=== PATIENT | male | born 1945 | race Caucasian/White ===

== ENCOUNTER → 2016-06-10 | Outpatient (CLI) | payer OTHER, MEDICARE | LOC: BMCIMAGING 10:48 → EDSTATUS 16:23 | PROVIDERS: ATTEND Physician Assistant | DX: M17.0 Bilateral primary osteoarthritis of knee (principal) ==

== ENCOUNTER → 2017-06-30 | Outpatient (CLI) | payer OTHER, MEDICARE | LOC: BHFA 13:30 | PROVIDERS: ATTEND Internal Medicine Interventional Cardiology | DX: R53.83 Other fatigue (principal) ==

== ENCOUNTER → 2017-07-16 | Outpatient (CLI) | payer OTHER, MEDICARE | LOC: FCPNEURO 20:00 | PROVIDERS: ATTEND Internal Medicine Sleep Medicine | DX: G47.33 Obstructive sleep apnea (adult) (pediatric) (principal); G47.31 Primary central sleep apnea ==

== ENCOUNTER 2018-02-09 05:58 | Inpatient (IN) | payer OTHER, MEDICARE ==
[2018-02-09] MEDS ORDERED: TRANEXAMIC ACID 3,000 MG in NS (SYRINGE) 50 ML IRR ONE (06:00)
[2018-02-09] MEDS ORDERED: POVIDONE-IODINE 20 ML in SODIUM CL IRRIG SOLUTION 500 ML IRR ONE (06:00)
[2018-02-09] MEDS ORDERED: ROPIVACAINE 0.2% 80 MG, EPINEPHrine 0.2 MG in SYRINGE 0 ML IU ONE (06:00)
[2018-02-09] MEDS ORDERED: TRANEXAMIC ACID 1,000 MG in NS 100 ML IV ONE (06:00)
[2018-02-09] MEDS ORDERED: GABAPENTIN 300 MG CAP PO ONE (06:12)
[2018-02-09] MEDS ORDERED: FAMOTIDINE 20 MG TAB PO ONE (06:12)
[2018-02-09] MEDS ORDERED: DEXAMETHASONE 4 MG/ML VIAL IVP ONE (06:12)
[2018-02-09] MEDS ORDERED: ceFAZolin 2 GM/DEXTROSE 100 ML IV ONE (06:12)
[2018-02-09] MEDS ORDERED: ONDANSETRON 4 MG/2 ML VIAL IVP ONE (06:12)
[2018-02-09] MEDS ORDERED: ACETAMINOPHEN 325 MG TAB PO ONE (06:12)
[2018-02-09] MEDS ORDERED: ceFAZolin 1 GM/5 ML SYR ONE (06:12)
[2018-02-09] MEDS ORDERED: LR 1,000 ML IV ONE (06:14)
[2018-02-09] MEDS ORDERED: TRANEXAMIC ACID 3,000 MG/50 ML BAG IRR ONE (06:15)
[2018-02-09] MEDS ORDERED: MIDAZOLAM 2 MG/2 ML VIAL IVP ONE (06:55)
--- NOTE | 2018-02-09 06:55 | PDANEPAE ---
ANE History of Present Illness 72 yo for tka ANE Past Medical History - Cardiovascular History Hx Hypertension: Yes Hx Arrhythmias: No Hx Chest Pain: No Hx Coronary Artery / Peripheral Vascular Disease: No Hx CHF / Valvular Disease: No Hx Palpitations: No Cardiovascular History Comment: PAST HX SKIPPED BEATS - NONE RECENT - Pulmonary History Hx COPD: No Hx Asthma/Reactive Airway Disease: No Hx Recent Upper Respiratory Infection: No Hx Oxygen in Use at Home: No Hx Sleep Apnea: Yes Sleep Apnea Screening Result - Last Documented: Negative Pulmonary History Comment: POS KAITLIN - ASV MACHINE - Neurologic History Hx Cerebrovascular Accident: No Hx Seizures: No Hx Dementia: No - Endocrine History Hx Diabetes: No - Renal History Hx Renal Disorders: Yes Renal History Comment: RENAL CELL CARCINOMA. R NEPHRECTOMY - Liver History Hx Hepatic Disorders: No - Neurological & Psychiatric Hx Hx Neurological and Psychiatric Disorders: No - Cancer History Hx Cancer: No Cancer History Comment: R KIDNEY CA - Congenital Disorder History Hx Congenital Disorders: No - GI History Hx Gastrointestinal Disorders: No - Other Health History Other Health History: BUMPY LUMPS SCALP - Chronic Pain History Chronic Pain: Yes (MICHELLE KNEES) - Surgical History Prior Surgeries: R NEPHRECTOMY. HEMMORRHOIDS. COLONOSCOPIES ANE Review of Systems Review of Systems: - Exercise capacity METS (RN): 4 METS ANE Patient History - Allergies Allergies/Adverse Reactions: No Known Allergies Allergy (Unverified 01/12/18 11:14) - Home Medications Home medications: home medication list seen and reviewed Home Medications: Calcitriol [Calcitriol (*)] 0.25 mcg PO Q2D 01/12/18 [Last Taken 02/08/18] Doxazosin Mesylate [Cardura 4 MG (*)] 4 mg PO DAILY 01/12/18 [Last Taken ] Ibuprofen [Motrin (*)] 200 mg PO DAILY PRN 01/12/18 [Last Taken 02/07/18] Losartan Potassium 100 mg PO DAILY 01/12/18 [Last Taken 02/08/18] Triamterene/Hctz 37.5/25 [Dyazide 37.5/25 (*)] 1 each PO Q2D 01/12/18 [Last Taken 02/08/18] amLODIPine BESYLATE [Norvasc 5 mg (*)] 5 mg PO DAILY 01/12/18 [Last Taken ] Acetaminophen 01/13/18 [Last Taken 02/07/18] - NPO status NPO Status: no food or drink >8 hours NPO Since - Liquids (Date): 02/09/18 NPO Since - Liquids (Time): 02:00 NPO Since - Solids (Date): 02/08/18 NPO Since - Solids (Time): 18:00 - Smoking Hx Smoking Status: Never smoked - Family Anes Hx Family Hx Anesthesia Complications: NEG ANE Labs/Vital Signs - Vital Signs Blood Pressure: 139/92 Heart Rate: 73 Respiratory Rate: 14 O2 Sat (%): 93 Height: 5 ft 10 in Weight: 79.379 kg ANE Physical Exam - Airway Neck exam: FROM Mallampati Score: Class 2 Mouth exam: normal dental/mouth exam - Pulmonary Pulmonary: no respiratory distress - Cardiovascular Cardiovascular: regular rate and rhythym - ASA Status ASA Status: III ANE Anesthesia Plan Anesthesia Plan: spinal Regional Anesthesia: continuous NB
[2018-02-09] MEDS ORDERED: MIDAZOLAM 2 MG/2 ML VIAL ONE (06:57)
--- NOTE | 2018-02-09 07:00 | PDHPUP ---
History & Physical Update H&P update statement: This history and physical update is based on an assessment of the patient which was completed after admission or registration (within 24 hours), but prior to the surgery/procedure. H&P update: H&P reviewed & patient examined
[2018-02-09] MEDS ORDERED: PROPOFOL/EMULSION 500 MG/50 ML BOTTLE IV ONE (07:05)
[2018-02-09] MEDS ORDERED: VANCOMYCIN 1 GM VIAL ONE (07:09)
[2018-02-09] MEDS ORDERED: HYDROmorphONE/DILAUDID 2 MG/ML INJ IVP PRN (08:43)
[2018-02-09] MEDS ORDERED: NALOXONE HCL 0.4 MG/ML INJ IVP PRN (08:43)
[2018-02-09] MEDS ORDERED: ONDANSETRON 4 MG/2 ML VIAL IVP PRN ×2 (08:43→09:04)
[2018-02-09] MEDS ORDERED: fentaNYL 100 MCG/2 ML INJ IVP PRN (08:43)
[2018-02-09] MEDS ORDERED: NS 500 ML IV PRN (09:04)
[2018-02-09] MEDS ORDERED: DIPHENOXYLATE/ATROPINE LOMOTIL 1 TAB PO PRN (09:04)
[2018-02-09] MEDS ORDERED: MAGNESIUM HYDROXIDE 30 ML UDCUP PO PRN (09:04)
[2018-02-09] MEDS ORDERED: diphenhydrAMINE 25 MG CAP PO PRN (09:04)
[2018-02-09] MEDS ORDERED: TEMAZEPAM 15 MG CAP PO PRN (09:04)
[2018-02-09] MEDS ORDERED: CYCLOBENZAPRINE 10 MG TAB PO PRN (09:04)
[2018-02-09] MEDS ORDERED: PROMETHAZINE HCL 25 MG/ML INJ IVP PRN (09:04)
[2018-02-09] MEDS ORDERED: BISACODYL 10 MG SUPP PR PRN (09:04)
[2018-02-09] MEDS ORDERED: traMADol 50 MG TAB PO PRN (09:04)
[2018-02-09] MEDS ORDERED: oxyCODONE IR 5 MG TAB PO PRN (09:04)
[2018-02-09] MEDS ORDERED: POLYETHYLENE GLYCOL 3350 17 GM PKT PO PRN (09:04)
[2018-02-09] MEDS ORDERED: LACTULOSE 20 GM/30 ML UDCUP PO PRN (09:04)
[2018-02-09] MEDS ORDERED: PROMETHAZINE HCL 25 MG SUPPR PR PRN (09:04)
[2018-02-09] MEDS ORDERED: ONDANSETRON DISINTEGRATING 4 MG TAB PO PRN (09:04)
[2018-02-09] MEDS ORDERED: METOCLOPRAMIDE 10 MG/2 ML VIAL IVP PRN (09:04)
--- NOTE | 2018-02-09 09:08 | POSTOPPROG ---
Post Op Note Date of Operation: 02/09/18 Surgeon: Asher Castro Laborer Wharf: Avinash Anesthesiologist: Sepideh Anesthesia: IV Sedation, Spinal Post-op Diagnosis: Right knee severe degenerative arthritis Procedure: Right total knee arthroplasty Inf/Abcess present in the surg proc area at time of surgery?: No EBL: 50-100 (Adductor canal block in PACU with indwelling catheter.)
[2018-02-09] MEDS ORDERED: LR 1,000 ML IV SCH (09:30)
--- NOTE | 2018-02-09 09:35 | GOP ---
DATE OF OPERATION: 02/09/2018 SURGEON: Asher Castro MD SOLE TACKER: Galo Curry and Anjum Villa. ANESTHESIA: A combination of Marcaine, spinal, IV sedation, and adductor canal block. ANESTHESIOLOGIST: Dr. Bunn. PREOPERATIVE DIAGNOSIS: Right knee severe degenerative arthritis with varus deformity. POSTOPERATIVE DIAGNOSIS: Right knee severe degenerative arthritis with varus deformity. PROCEDURE PERFORMED: Right total knee arthroplasty. FINDINGS: DESCRIPTION OF PROCEDURE: The patient was given 2 g of IV Ancef preoperatively within 60 minutes of surgery. He also received 1000 mg of IV tranexamic acid. He was placed on the operating room table and given spinal anesthesia with Marcaine by Dr. Bunn. He was then placed supine and given IV se dation. A Miranda catheter was not used. He wore a AKHIL stocking and SCD on the nonoperative leg. A s mall bolster was placed under his right hip to prevent excessive external rotation. His right lower extremity was prepped with ChloraPrep from the upper thigh tourniquet to the tips of the toes. It wa s draped free using sterile sheets, stockinette, and Ioban plastic adhesive drapes. His lower leg wa s wrapped with compressive Coban. The leg was exsanguinated with elevation and a 6-inch compressive wrap, and the tourniquet was inflated to 250 mmHg. The World Health Organization time-out was performed to verify the correct patient identity and the c orrect surgical side and site. [facility] time-out was also performed. The [employer] leg holding device was sterilely attached to the operating room table and used throughout the procedure to help position the knee. A straight midline incision was made centered on the patell a. Subcutaneous tissues were sharply divided and hemostasis was obtained using electrocautery. A me dial subcutaneous flap was developed and the capsule and synovium were opened in a medial parapatella r fashion. Extensive degenerative changes were present, particularly in the patellofemoral joint and medial compartment. His medial capsule and periosteum were elevated off the rim of the medial tibia l plateau all the way around to the posteromedial corner. His medial collateral ligament was release d enough to balance the medial side of the knee and correct the varus deformity. In order to improve exposure, his patella was prepared first. The original thickness of the patella was measured. Peripheral osteophytes were removed. I cut a flat surface on the back of the patella. He was sized for a 38 mm round resurfacing component. I removed enough bone from the patella, such that the remaining bone, plus the thickness of the patellar component recreated the original thickne ss of the patella. The composite thickness was 24 mm. The intramedullary alignment guide system was used to set up the distal femoral cut. The distal femu r was cut in 5 degrees of valgus. Because of a 10 to 12 degree preoperative flexion contracture, I m ben a +2 mm cut on the distal femur. The sizing jig was used to determine proper femoral sizing. I shifted the jig anteriorly 1 mm in order to accommodate a size 6 jig without notching the anterior co rtex. I placed the jig in a few degrees of flexion. The 5-in-1 cutting block was applied and the an terior and posterior condylar cuts and chamfer cuts were made. The final jig was used to remove the central portion of the distal femur to accommodate the posterior stabilized femoral component. I was careful to determine proper rotation by referencing off Whitesides line and other bony landmarks. E ach cut was checked for accuracy. The femur was sized for a size 6 posterior stabilized component. Next, the tibia was prepared. The proximal tibial cut was made using the extramedullary alignment gu sameer system. The cut was made in a few degrees of posterior slope. I was careful to achieve proper v arus valgus alignment and proper rotation. The posterior compartment was cleared of meniscal remnant s. Osteophytes were removed from the back of the femoral condyles. I checked the flexion extension gaps and they were equal and rectangular. The tibia was sized for a size 5 component. With the tria l components in place, I selected an 11 mm polyethylene posterior stabilized tibial insert. The knee came to full extension and flexed to 125 degrees. His collateral ligaments were stable and balanced in 90 degrees of flexion and full extension. The trial patellar button was applied and patellar tra cking was checked. Tracking was excellent without any digital pressure. 40 cc of the joint anesthetic cocktail were injected into the posterior capsule, the quadriceps muscl e and tendon areas, and the subcutaneous tissues around the skin edges. The surfaces were prepared for cementing. They were carefully cleaned with the pulsating lavage irri gation and thoroughly dried. The CarboJet device was used to blow dry the cancellous surfaces. A do uble batch of high viscosity methylmethacrylate cement with 2 g of powdered vancomycin added was mixe d. While it was still in a doughy state, all 3 components were cemented in place. Excess cement was removed before it hardened. The 11 mm trial tibial insert was re-tried and was the proper thickness. The actual component was in serted, locked into place. The knee was thoroughly irrigated one final time with a dilute Betadine s olution. The tourniquet was deflated and the total tourniquet time was 45 minutes. 50 cc of tranexa bella acid solution was irrigated into the joint. I packed the joint with the lap sponge and wrapped w ith a 6 inch wrap and left the tranexamic acid in place for 3 or 4 minutes. The vastus medialis portion of the extensor mechanism was repaired with several interrupted figure-of -eight #2 FiberWire sutures. The capsule and synovium were closed first with multiple interrupted fi [id number] 0 PDS sutures, followed by a running #2 barbed Ethicon Stratafix PDO suture. The subcu taneous tissues were closed with a running 0 barbed Ethicon Stratafix MonoDerm suture. The skin was closed with a running 3-0 barbed Ethicon Stratafix MonoDerm subcuticular suture. The skin was sealed with half-inch Steri-Strips. The wound was covered with a large Mepilex waterproof dressing and a 6 -inch compressive wrap. A long-leg AKHIL stocking and SCD were applied, followed by the cooling device . He wore a stocking and SCD on the opposite leg during the procedure. The sacral Mepilex dressing was applied. I used a size 6 cemented [employer] Oxinium posterior stabilized femoral component, a size 5 ce mented tibial base plate, an 11 mm posterior stabilized tibial insert, and a 38 mm cemented round all -polyethylene resurfacing patellar component. The estimated blood loss following inflation tourniquet was about 100 cc. The sponge and needle count were correct on 2 occasions. The patient was awakened from anesthesia, transferred to his hospital [facility], and taken to PACU in sa tisfactory condition. There were no recognized intraoperative complications. In the PACU, for addit ional postoperative pain control, Dr. Bunn performed an adductor canal block with an indwelling c atheter. Galo Curry and Anjum Villa acted as surgical assistants. Their assistance was a medical necess ity for safe completion of the procedure. /[id number]/MODL
--- NOTE | 2018-02-09 10:14 | POSTANESTH ---
Post Anesthetic Evaluation Cardiovascular Status: Normal, Stable Respiratory Status: Tx Decrease in SpO2 Level of Consciousness/Mental Status: Can Participate in Eval Pain Control: Adequate, Prn Tx Ordered Nausea/Vomiting Control: Adequate, Prn Tx Ordered Complications Possibly Related to Anesthesia: None Noted
[2018-02-09] MEDS: ACETAMINOPHEN 325 MG TAB PO SCH ×3 (11:13→23:29)
--- NOTE | 2018-02-09 15:49 | ASMTCMCOM ---
CM Note CM Note Notes: Reviewed chart, pt came in for scheduled surgery of right knee. Pt lives at home with his , PT/OT pending. DC Plan: TBD Date Signed: 02/09/2018 03:48 PM Electronically Signed By:Dolly Ramirez RN
[2018-02-09] MEDS: ceFAZolin 2 GM/DEXTROSE 100 ML IV SCH ×2 (16:20→23:29)
[2018-02-09] MEDS: SENNOSIDES/DOCUSATE SODIUM TAB PO SCH (21:50)
[2018-02-09] MEDS: FAMOTIDINE 20 MG TAB PO SCH (21:50)
[2018-02-09] MEDS: ASPIRIN 325 MG TAB PO SCH (21:53)
[2018-02-10] MEDS ORDERED: PNEUMOC 13-VAL CONJ-DIP CRM/PF 0.5 ML SYR IM ONE (05:44)
[2018-02-10] MEDS: ACETAMINOPHEN 325 MG TAB PO SCH ×2 (06:19→13:11)
--- NOTE | 2018-02-10 08:46 | SOAPPROG ---
SOAP Progress Note Assessment/Plan: Assessment: POD #1. s/p R TKA Awake, alert, afebrile. VSS. H/H ok. Dressing clean and dry. Post op films look good. 1 episode of emesis yesterday. Feeling better now. Dizzy getting OOB yesterday. Plan: PT/OT today. D/c to home later today pending dizzyness/progress with ambulation. Will need home PT for 2-3 sessions. 02/10/18 08:44 Objective: Vital Signs Temp Pulse Resp BP Pulse Ox 36.5 C 58 L 16 135/79 H 97 02/10/18 05:00 02/10/18 05:00 02/10/18 05:00 02/10/18 05:00 02/10/18 05:00 Laboratory Results 02/10/18 04:52 02/09/18 02/10/18 02/11/18 05:59 05:59 05:59 Intake Total 3485 Output Total 1750 Balance 1735 ICD10 Worksheet Patient Problems: Problems Problem Status Onset Osteoarthritis of right knee Acute
--- NOTE | 2018-02-10 08:49 | PDIAF ---
- Diagnosis Diagnosis: R knee OA Code Status: Full Code - Medication Management Discharge Medications: Medications to Continue on Transfer Calcitriol [Calcitriol (*)] 0.25 mcg PO Q2D 01/12/18 [Last Taken 02/08/18] Doxazosin Mesylate [Cardura 4 MG (*)] 4 mg PO DAILY 01/12/18 [Last Taken ] Losartan Potassium 100 mg PO DAILY 01/12/18 [Last Taken 02/08/18] Triamterene/Hctz 37.5/25 [Dyazide 37.5/25 (*)] 1 each PO Q2D 01/12/18 [Last Taken 02/08/18] amLODIPine BESYLATE [Norvasc 5 mg (*)] 5 mg PO DAILY 01/12/18 [Last Taken ] Acetaminophen [Tylenol 325mg (*)] 650 mg PO Q6HRS tab 02/10/18 [Last Taken Unknown] Aspirin [Aspirin 325 mg (*)] 325 mg PO DAILY tab 02/10/18 [Last Taken Unknown] Ferrous Sulfate [Slow Fe 140 MG (*)] 140 mg PO DAILY tab.er 02/10/18 [Last Taken Unknown] Ondansetron Odt [Zofran Odt 4 mg (*)] 4 mg PO Q4HRS PRN tab 02/10/18 [Last Taken Unknown] Sennosides/Docusate Sodium [Senokot-S] 1 - 2 tab PO BID tab 02/10/18 [Last Taken Unknown] oxyCODONE IR [Oxycodone Ir (*)] 5 - 10 mg PO Q3HRS PRN tab 02/10/18 [Last Taken Unknown] traMADol [Ultram 50 mg (*)] 50 mg PO Q6HRS PRN tab 02/10/18 [Last Taken Unknown ] Discharge Medications: Refer to the Discharge Home Medication list for PRN reason. PICC Care - Routine: N/A - Orders Services needed: Home Care, Physical Therapy Home Care Face to Face: I certify that this patient was under my care and that I had the required [id number] encounter meeting the encounter requirements on the discharge day. My findings support the fact that the patient is homebound as defined in Home Care Face to Face Continued: CMS Chapter 7 Medicare Benefits Manual 30.1.1 , The condition of the patient is such that there exists a normal inability to leave home and consequently, leaving home would require a considerable and taxing effort. Diet Recommendation: no restrictions on diet Diet Texture: Regular Texture Diet Miranda: Not applicable [place] Stockings Discontinue Date: 1 week Wound Care Instructions: Keep clean and dry. You may shower. Activity/Weight Bearing Restrictions: as tolerated. Equipment: Zero knee while in bed. - Follow Up Care Current Providers and Referrals: Sam Sepulveda MD [Primary Care Provider] - Asher Castro MD [Medical Doctor] - 02/24/18
[2018-02-10] MEDS ORDERED: amLODIPine BESYLATE 5 MG TAB PO SCH (09:00)
[2018-02-10] MEDS ORDERED: FERROUS SULFATE 140 MG TAB.ER PO SCH (09:00)
[2018-02-10] MEDS ORDERED: DOXAZOSIN MESYLATE 4 MG TAB PO SCH (09:00)
[2018-02-10] MEDS ORDERED: LOSARTAN POTASSIUM 50 MG TAB PO SCH (09:00)
[2018-02-10] MEDS: SENNOSIDES/DOCUSATE SODIUM TAB PO SCH (10:16)
[2018-02-10] MEDS: ASPIRIN 325 MG TAB PO SCH (10:17)
[2018-02-10] MEDS: FAMOTIDINE 20 MG TAB PO SCH (10:17)
--- NOTE | 2018-02-10 10:25 | ASMTCMCOM ---
CM Note CM Note Notes: Pt medically stable for d/c with [facility] ([facility] alerted). Orders to be obtained via [employer]. Date Signed: 02/10/2018 10:25 AM Electronically Signed By:ALEXA Galvez
[2018-02-10] MEDS ORDERED: LIPID EMULSION 20% 100 ML IV PRN (11:16)
--- NOTE | 2018-02-10 12:39 | PDPAINCON ---
Pain Management Consultation Patient referred by : Gloria - Subjective Pain at rest (/10): 0 Pain is: no pain at all Activity: able to ambulate, participating in PT - Objective Technique: continuous peripheral nerve block Site: femoral Catheter site: clean, dry, intact, no erythema/edema/exudate Sensory and motor exam: consistent with block Vital signs: stable - Assessment/Plan Assessment/Plan: pain well-controlled, continue current mgmt Additional comments: Ropivicaine 0.5% 20cc bolused thru catheter and then removed. No complications
[2018-02-10 13:30] VITALS: BP 148/82
--- NOTE | 2018-02-10 16:44 | ASMTLACE ---
LACE Length of stay for Answers: 2 days current admission Acuity / Level of Answers: Yes Care: Did the patient have an inpatient admission? Comorbidities - select Answers: Other Notes: Kidney Ca all that apply # of Emergency department Answers: 0 visits in the last 6 months Score: 6 Date Signed: 02/10/2018 04:43 PM Electronically Signed By:ALEXA Galvez
[2018-02-11] MEDS ORDERED: CALCITRIOL 0.25 MCG CAP PO SCH (09:00)
[2018-02-11] MEDS ORDERED: TRIAMTERENE/HCTZ 37.5/25 1 EACH CAP PO SCH (09:00)
--- NOTE | 2018-02-11 12:28 | ASDISCHSUM ---
Discharge Information Plan Status:Home with Home Health Medically Cleared to Leave: Discharge Date:02/10/2018 03:33 PM CM D/C Disposition: ADT D/C Disposition:HHSNOTBC Projected Discharge Date:02/10/2018 11:00 AM Transportation at D/C: Discharge Delay Reason: Follow-Up Date:02/10/2018 11:00 AM Discharge Slot: Final Diagnosis: Placement Information Referral Type:*Home Health Care Services Referral ID:[id number] Provider Name:[facility] Address 1[address] 2: City:[place] Selection Factors: State:[place] Patient Contact Information Contact Name:RON Relationship: Address:[facility] [place] City:[place] Alternate Phone: State/Zip Code:[place] [address] Email: Financial Information Financial Class:Medicare Primary Plan Desc:MEDICARE INPATIENT Primary Plan Number:[id number] Secondary Plan Desc:AARP/MDR SUPPLEMENT Secondary Plan Number:[id number] Assessment Information LACE LACE Length of stay for Answers: 2 days current admission Acuity / Level of Answers: Yes Care: Did the patient have an inpatient admission? Comorbidities - select Answers: Other Notes: Kidney Ca all that apply # of Emergency department Answers: 0 visits in the last 6 months Score: 6 Date Signed: 02/10/2018 04:43 PM Electronically Signed By:ALEXA Galvez [facility] CM Progress Note CM Note CM Note Notes: Reviewed chart, pt came in for scheduled surgery of right knee. Pt lives at home with his , PT/OT pending. DC Plan: TBD Date Signed: 02/09/2018 03:48 PM Electronically Signed By:Dolly Ramirez RN [facility] CM Progress Note CM Note CM Note Notes: Pt medically stable for d/c with [facility] (Alma guzman). Orders to be obtained via [employer]. Date Signed: 02/10/2018 10:25 AM Electronically Signed By:ALEXA Galvez Intervention Information
--- NOTE | 2018-02-15 11:15 | GDS ---
ADMISSION DIAGNOSIS: Severe right knee osteoarthritis. DISCHARGE DIAGNOSIS: Severe right knee osteoarthritis. OPERATION PERFORMED: A right total knee arthroplasty, cemented. POSTOPERATIVE COMPLICATIONS: None. CONDITION ON DISCHARGE: Improved. HOSPITAL COURSE: The patient was admitted to the hospital on the day of surgery. His admission whit e blood cell count was 5.7. His hemoglobin and hematocrit were normal. His BUN and creatinine were 30 and 2.1, respectively. He has a history of renal cell carcinoma with nephrectomy. The same day u nder a combination of IV sedation and Marcaine spinal anesthesia, the patient underwent a right total knee arthroplasty. A Miranda catheter was not used. He was treated with multimodal DVT prophylaxis, including AKHIL stockings, SCDs, and early mobilization. On the first postoperative day, the patient's hemoglobin and hematocrit were 11.5 and 35.2. He was s een by Physical Therapy and made good progress with knee range of motion exercises and ambulation. By the time of discharge, the patient was independent with his exercises and afebrile. He was ambula ting with a walker. DISPOSITION: The patient is discharged to his home. He will have home physical therapy. He has a p rescription for tramadol and oxycodone for pain control. He also has a prescription for outpatient p hysical therapy. Full-strength aspirin daily x21 days. AKHIL stockings x1 week. Weightbearing as anel erated. He has a followup appointment in the office with Dr. Castro on February 24, 2018. He is to c all the office sooner if he has any problems. /[id number]/MODL
== END 2018-02-10 15:33 | disposition home health service (06) | DRG 470 ==
LOC: F3N 05:58 → OBSVTOIN 09:09 → F3N 10:32
PROVIDERS: ADMIT Orthopaedic Surgery; ATTEND Orthopaedic Surgery
PROC: 0SRC0J9 Replacement of Right Knee Joint with Synthetic Substitute, Cemented, Open Approach (ICD-10-PCS; principal; 2018-02-09 07:15)
DX: M17.11 Unilateral primary osteoarthritis, right knee (principal); G47.30 Sleep apnea, unspecified; I10 Essential (primary) hypertension; Z85.528 Personal history of other malignant neoplasm of kidney; Z90.5 Acquired absence of kidney; Z23 Encounter for immunization
CPT/HCPCS: 97110-GP; 97116-GP; 97161-GP; 97165-GO; C1713; G0008; G0009; G8978-GP-CJ; G8979-GP-CI; G8980-GP-CI; G8987-GO-CI; G8988-GO-CI; G8989-GO-CI; J0171; J0690; J1100; J2250; J2405; J2550; J2704; J2795; J3370

== ENCOUNTER 2018-09-17 16:52 | Emergency (ER) | payer OTHER, MEDICARE ==
--- NOTE | 2018-09-17 17:11 | EDPHY ---
H & P Stated Complaint: unable to urinate since this am Time Seen by Provider: 09/17/18 16:57 HPI/ROS: CHIEF COMPLAINT: Unable to urinate HISTORY OF PRESENT ILLNESS: Patient is a 73-year-old man who comes to the emergency department complaining of being unable to urinate for the last 3 hr. He has a history of renal tumor with nephrectomy 3 years ago. He has known large prostate. He has never had difficulty urinating before however. He has not noticed any blood in his urine. No fever or dysuria. Moderate suprapubic pain. Patient saw his community development coordinator yesterday in urinalysis and blood work is been unremarkable recently. Severity: Severe Modifying factors: None REVIEW OF SYSTEMS: Constitutional: denies: chills, fever, recent illness, recent injury EENTM: denies: blurred vision, double vision, nose congestion Respiratory: denies: cough, shortness of breath Cardiac: denies: chest pain, irregular heart rate, lightheadedness, palpitations Gastrointestinal/Abdominal: denies: abdominal pain, diarrhea, nausea, vomiting, blood streaked stools Genitourinary: See HPI Musculoskeletal: denies: joint pain, muscle pain Skin: denies: lesions, rash, jaundice, bruising Neurological: denies: headache, numbness, paresthesia, tingling, dizziness, weakness Hematologic/Lymphatic: denies: blood clots, easy bleeding, easy bruising Immunologic/allergic: denies: HIV/AIDS, transplant 10 systems reviewed and negative except as noted EXAM: GENERAL: Well-appearing, well-nourished and in no acute distress. HEAD: Atraumatic, normocephalic. EYES: Pupils equal round and reactive to light, extraocular movements intact, sclera anicteric, conjunctiva are normal. ENT: TMs normal, nares patent, oropharynx clear without exudates. Moist mucous membranes. NECK: Normal range of motion, supple without lymphadenopathy or JVD. LUNGS: Breath sounds clear to auscultation bilaterally and equal. No wheezes rales or rhonchi. HEART: Regular rate and rhythm without murmurs, rubs or gallops. ABDOMEN: Tender distended bladder, normoactive bowel sounds. No guarding, no rebound. No masses appreciated. BACK: No CVA tenderness, no spinal tenderness, step-offs or deformities EXTREMITIES: Normal range of motion, no pitting or edema. No clubbing or cyanosis. NEUROLOGICAL: Cranial nerves II through XII grossly intact. Normal speech, normal gait. 5/5 strength, normal movement in all extremities, normal sensation , normal reflexes PSYCH: Normal mood, normal affect. SKIN: Warm, dry, normal turgor, no visible rashes or lesions. Source: Patient Exam Limitations: No limitations - Personal History Current Tetanus/Diphtheria Vaccine: Unsure Current Tetanus Diphtheria and Acellular Pertussis (TDAP): Unsure - Medical/Surgical History Hx Asthma: No Hx Chronic Respiratory Disease: No Hx Diabetes: No Hx Cardiac Disease: No Hx Renal Disease: No Hx Cirrhosis: No Hx Alcoholism: No Hx HIV/AIDS: No Hx Splenectomy or Spleen Trauma: No Other PMH: HTN, Tumor removed from R kidney. Hemmhroids. - Family History Significant Family History: No pertinent family hx - Social History Smoking Status: Never smoked Alcohol Use: Sober Drug Use: None Constitutional: Initial Vital Signs Temperature (C) 36.7 C 09/17/18 16:54 Heart Rate 97 09/17/18 16:54 Respiratory Rate 12 09/17/18 16:54 Blood Pressure 167/121 H 09/17/18 16:54 O2 Sat (%) 96 09/17/18 16:54 O2 Delivery Mode Room Air Allergies/Adverse Reactions: No Known Allergies Allergy (Unverified 01/12/18 11:14) Home Medications: Medication Instructions Recorded Calcitriol [Calcitriol (*)] 0.25 mcg PO Q2D 01/12/18 Doxazosin Mesylate [Cardura 4 MG 4 mg PO DAILY 01/12/18 (*)] Losartan Potassium 100 mg PO DAILY 01/12/18 Triamterene/Hctz 37.5/25 [Dyazide 1 each PO Q2D 01/12/18 37.5/25 (*)] amLODIPine BESYLATE [Norvasc 5 mg 5 mg PO DAILY 01/12/18 (*)] Acetaminophen [Tylenol 325mg (*)] 650 mg PO Q6HRS tab 02/10/18 Aspirin [Aspirin 325 mg (*)] 325 mg PO DAILY tab 02/10/18 Ferrous Sulfate [Slow Fe 140 MG] 140 mg PO DAILY tab.er 02/10/18 Ondansetron Odt [Zofran Odt 4 mg 4 mg PO Q4HRS PRN tab 02/10/18 (*)] Sennosides/Docusate Sodium 1 - 2 tab PO BID tab 02/10/18 [Senokot-S] oxyCODONE IR [Oxycodone Ir (*)] 5 - 10 mg PO Q3HRS PRN tab 02/10/18 traMADol [Ultram 50 mg (*)] 50 mg PO Q6HRS PRN tab 02/10/18 Medical Decision Making ED Course/Re-evaluation: Patient tolerated Miranda catheter placement. Urine is clear. Will send for testing. Will leave Miranda catheter in place with leg bag until he follows up with his urologist Dr. Antoine. Patient and are happy with this plan. Differential Diagnosis: Partial list of the Differential diagnosis considered include but were not limited to; prostatic hypertrophy, prostatic cancer, urinary retention and although unlikely based on the history and physical exam, I also considered urinary tract infection, kidney stone. I discussed these differential diagnoses and the plan with the patient as well as the usual and expected course. The patient understands that the diagnosis is provisional and that in medicine we are not always correct and that further workup is often warranted. Usual and customary warnings were given. All of the patient's questions were answered. The patient was instructed to return to the emergency department should the symptoms at all worsen or return, otherwise to followup with the physician as we discussed. - Data Points Laboratory Results: 09/17/18 18:10 Urine Color YELLOW Urine Appearance CLEAR Urine pH 6.0 (5.0-7.5) Ur Specific Fosters 1.017 (1.002-1.030) Urine Protein 3+ H (NEGATIVE) Urine Ketones NEGATIVE (NEGATIVE) Urine Blood NEGATIVE (NEGATIVE) Urine Nitrate NEGATIVE (NEGATIVE) Urine Bilirubin NEGATIVE (NEGATIVE) Urine Urobilinogen NEGATIVE EU EU (0.2-1.0) Ur Leukocyte Esterase NEGATIVE (NEGATIVE) Urine RBC 1-3 /hpf /hpf (0-3) Urine WBC 1-3 /hpf /hpf (0-3) Ur Epithelial Cells NONE SEEN /lpf /lpf (NONE-1+) Urine Mucus TRACE /lpf /lpf (NONE-1+) Urine Glucose NEGATIVE (NEGATIVE) Departure - Departure Disposition: Home, Routine, Self-Care Clinical Impression: Urinary retention Condition: Fair Instructions: Urinary Retention in Men (ED), Miranda Catheter Placement and Care (ED) Additional Instructions: Follow-up with Urology for Miranda removal. Referrals: Rupal Gilman PA [Primary Care Provider] - As per Instructions Yamilet Antoine MD [Medical Doctor] - As per Instructions Narendra Johnston MD [Medical Doctor] - 5-7 days, call for appt.
[2018-09-17 19:08] VITALS: BP 153/113
== END 2018-09-17 19:08 | disposition home or self-care (01) ==
PROC: 0T9B70Z Drainage of Bladder with Drainage Device, Via Natural or Artificial Opening (ICD-10-PCS; principal; 2018-09-17)
DX: N40.0 Benign prostatic hyperplasia without lower urinary tract symptoms (principal); R33.9 Retention of urine, unspecified; Z85.828 Personal history of other malignant neoplasm of skin; Z90.5 Acquired absence of kidney